=== PATIENT | female | born 1950 | race Caucasian/White ===

== ENCOUNTER 2024-10-31 18:32 | Emergency (ER) | payer MEDICARE, BC, SELFPAY ==
[2024-10-31 18:41] VITALS: BP 135/89; PULSE 77; RESP 14; TEMP 36.1; O2SAT 96
--- NOTE | 2024-10-31 19:02 | ED_ITS ---
HPI - General Adult General Chief complaint: Extremity Pain/Injury, Upper Stated complaint: pain in upper left body Time Seen by Provider: 10/31/24 18:36 History of Present Illness HPI narrative: This patient comes in with severe pain in her left neck radiating down into her shoulder and her arm. 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 She does not report any injury event but did recently have a surgery to remove tumor from her right upper arm. She may have been favoring and over using her left arm and now has pain that she states is not adequately treated with oxycodone and Flexeril. She did have an MRI of her shoulder joint and I was able to read results of this study that was done elsewhere. There are no significant findings to explain her pain on that particular study. More likely she is having symptoms radiating from her neck. Related Data Home Medications ?Medication ?Instructions ?Recorded ?Confirmed citalopram 20 mg tablet 20 mg PO DAILY 10/31/24 10/31/24 cyclobenzaprine 10 mg tablet 10 mg PO QPM 10/31/24 10/31/24 hydrochlorothiazide 12.5 mg tablet 12.5 mg PO DAILY 10/31/24 10/31/24 losartan 100 mg tablet 50 mg PO DAILY 10/31/24 10/31/24 oxycodone 5 mg tablet mg PO 10/31/24 trazodone 50 mg tablet 50 mg PO QPM 10/31/24 10/31/24 Previous Rx's ?Medication ?Instructions ?Recorded methylprednisolone 4 mg tablets in See Rx Instructions PO .COMPLEX 10/31/24 a dose pack (Medrol (Michael)) #21 ea Allergies Allergy/AdvReac Type Severity Reaction Status Date / Time No Known Drug Allergies Allergy Verified 10/31/24 18:39 Review of Systems Status of ROS: Reports: 10 or more systems reviewed and unremarkable except as noted in History and below Narrative: Constitutional: No fevers, no weight gain or loss. Eyes: No discharge. No vision changes. HENT: No congestion, no sore throat, no ear pain. Cardiovascular: No chest pain, no palpitations. Respiratory: No shortness of breath, no wheezes, no cough. Gastrointestinal: No abdominal pain, no vomiting, no diarrhea. Genitourinary: No dysuria, no hematuria. Musculoskeletal: Left neck pain radiating down the left arm as described above. Skin: No rashes, no pruritis. Neurological: No dizziness, weakness, sensory change, speech change. Endo/Heme/Allergies: No bruising or bleeding. No polydipsia. Pysch: no suicidality, no anxiety, no insomnia. All other systems reviewed and are negative. [facility] Social History Smoking Status: Never smoker How often do you have a drink containing alcohol: never AUDIT-C Alcohol total score: 0 Non-prescribed substance use: denies use Exam Narrative: Exam Narrative: Constitutional: Well-developed, well-nourished, no acute distress. HEENT: Normocephalic, atraumatic. Neck: Normal range of motion. Nontender. Supple. Heart: Regular. No murmurs. Normal rate. Intact distal pulses. Lungs: Clear to auscultation. No chest discomfort. No wheezes, rhonchi, or rales. Abdomen: Normal bowel sounds. Nontender. No rebound tenderness. Genitalia: Deferred. Back: No midline tenderness. Normal range of motion. Extremities: Normal range of motion. No injury. Skin: Intact. No rash. Warm. No erythema or pallor. Neurologic: No altered sensation. No weakness. Alert and oriented. Spurling's test is positive when extending her head in rotating to the left causing pain radiating into her left arm. Psychiatric: No suicidality. No anxiety or depression. No insomnia. Nursing notes and vitals signs are reviewed. Const: Vital Signs, click to edit/add: Vital Signs - 24 hr 10/31/24 18:41 Temperature 97.0 F L Pulse Rate [Pulse Oximeter] 77 Respiratory Rate 14 Blood Pressure [Ri ght Upper Arm] 135/89 Pulse Oximetry 96 Oxygen Delivery Me thod Room Air Course Vital Signs Vital signs: Initial Vital Signs Temperature 97.0 F L 10/31/24 18:41 Temperature Source Temporal Artery Scan 10/31/24 18:41 Pulse Rate 77 10/31/24 18:41 Pulse Rhythm Regular 10/31/24 18:41 Respiratory Rate 14 10/31/24 18:41 Blood Pressure 135/89 10/31/24 18:41 Blood Pressure Mean 104 10/31/24 18:41 Blood Pressure Position Sitting 10/31/24 18:41 Pulse Oximetry 96 10/31/24 18:41 Oxygen Delivery Method Room Air 10/31/24 18:41 Vital Signs Temperature 97.0 F L 10/31/24 18:41 Pulse Rate 77 10/31/24 18:41 Respiratory Rate 14 10/31/24 18:41 Blood Pressure 135/89 10/31/24 18:41 Pulse Oximetry 96 10/31/24 18:41 Oxygen Delivery Method Room Air 10/31/24 18:41 Temperature 97.0 F L 10/31/24 18:41 Pulse Rate 77 10/31/24 18:41 Respiratory Rate 14 10/31/24 18:41 Blood Pressure 135/89 10/31/24 18:41 Pulse Oximetry 96 10/31/24 18:41 Oxygen Delivery Method Room Air 10/31/24 18:41 Medical Decision Making MDM Narrative Medical decision making narrative: This patient comes in because of pain in her left shoulder and arm as described above. She is working with providers who are attending to her cancer and is currently taking chemotherapy. There is some suspicion of metastatic disease to her spine as that it has spread to other bones in her body. She had an MRI elsewhere and would need to have another 1 of her neck to further understand what may be causing her radicular symptoms. MRI is not available here at this time. She will need to follow-up with her primary providers. The patient did receive an oral dose of dexamethasone and an intramuscular injection of morphine 10 mg. I did also provide a prescription for Medrol Dosepak but instructed her to follow up with her primary physicians before starting this medicine as it may a potential to interact with her current chemotherapies. The patient states that she does get a IV dose of a steroid when she does receive chemotherapy so a 1 time oral dose of dexamethasone was given here with hopes that this may be bring some benefit. Discharge Plan Discharge Clinical Impression: Cervical radiculopathy, Cholangiocarcinoma Patient Disposition: Home, Self-Care Condition: Stable Additional Instructions: Continue current medications. Follow up with primary physicians for ongoing management. Prescriptions: New methylprednisolone [Medrol (Michael)] 4 mg tablets,dose pack See Rx Instructions .ROUTE .COMPLEX Qty: 21 0RF Rx Instructions: orally per package directions No Action cyclobenzaprine 10 mg tablet 10 mg PO QPM citalopram 20 mg tablet 20 mg PO DAILY losartan 100 mg tablet 50 mg PO DAILY hydrochlorothiazide 12.5 mg tablet 12.5 mg PO DAILY trazodone 50 mg tablet 50 mg PO QPM oxycodone 5 mg tablet PO Stand Alone Forms: MyHealth Info Instructions
[2024-10-31] MEDS: dexAMETHasone 10 MG/ML inj PO (19:15)
[2024-10-31] MEDS: MORPHINE 10 MG/ML inj IM (19:15)
== END 2024-10-31 20:05 | disposition home or self-care (01) ==
LOC: ED 20:04
PROVIDERS: Emergency Provider Emergency Medicine Emergency Medical Services
DX: M54.12 Radiculopathy, cervical region (principal); C22.1 Intrahepatic bile duct carcinoma
CPT/HCPCS: 96372; 99284; J1100; J2270